=== PATIENT | female | born 1960 | race Caucasian/White ===

== ENCOUNTER 2020-03-10 00:58 | Emergency (ER) | payer MEDICARE ==
[~2020-03-10 00:58] MED LIST: ANASTROZOLE1 MG PO; BACLOFEN 10MG T10 MG PO; BACTRIM DS TAB1 EACH PO; BREO ELLIPTA 11 EACH INH; BUMEX1 MG PO; BUSPAR5 MG PO; CLARITIN10 MG PO; COMBIVENT RESPIM4 GM INH; COREG 6.25MG6.25 MG PO; CRESTOR20 MG PO; DUONEB 2.5-0.5M1 AMP INH; FUROSEMIDE 40MG40 MG PO; HYDRALAZINE HCL25 MG PO; ISOSORBIDE MONO30 MG PO; LASIX20 MG PO; LEVAQUIN250 MG PO; LIPITOR20 MG PO; MYCOPHENOLATE500 MG PO; NASONEX NAS120 PUFFS; NORCO 7.5-3251 EACH PO; PREDNISONE 20MG20 MG PO; PRILOSEC20 MG PO; PRINIVIL10 MG PO; PROZAC20 MG PO; SINGULAIR10 MG PO; TOPROL XL 25MG25 MG PO; TUMERIC PO; VITAMIN B-121000 MC1 IM; VOLTAREN **OUT75 MG PO; XANAX0.5 M1 PO; ZAROXOLYN2.5 MG PO; ZYRTEC-D TABLE1 EACH PO
[2020-03-10 01:54] LABS: BASOPHIL 0.1 % (0-2); EOSINOPHIL 0.7 % (0-5); HCT 30.7 % (37.0-47.0); HGB 10.1 g/dl (12.5-16.0); LYMPHOCYTE 6.7 % (15-48); MCH 30.6 pg (25.0-31.0); MCHC 32.9 g/dL (32.0-36.0); MONOCYTE 3.7 % (0-12); MPV 12.2 fL (6.0-9.5); NEUTROPHIL 87.8 % (41-80); NRBC 0; PLT 193 K/uL (150-400); RDW 16.7 % (11.5-14.0); WBC 20.6 K/uL (4.0-10.5)
[2020-03-10 02:30] LABS: LACTIC ACID 0.6 mmol/L (0.4-1.9); PRO-BNP > 35000 pg/mL (<125)
[2020-03-10 04:40] LABS: ALBUMIN 1.4 g/dL (3.4-5.0); ALKALINE PHOSHATASE 235 U/L (46-116); ALT 15 U/L (14-59); AMYLASE 17 U/L (25-115); AST 12 U/L (15-37); BILIRUBIN - TOTAL 0.4 mg/dL (0.2-1.0); CHLORIDE 92 mmol/L (98-107); CO2 (BICARBONATE) 22 mmol/L (21-32); CREATININE 9.29 mg/dL (0.51-0.95); GLOBULIN (CALCULATION) 4.8 g/dL; GLUCOSE 90 mg/dL (74-106); LDH 182 U/L (81-234); POTASSIUM 3.6 mmol/L (3.5-5.1); TOTAL PROTEIN 6.2 g/dL (6.4-8.2)
[2020-03-10 04:41] LABS: BUN 82 mg/dL (7-18); C-REACTIVE PROTEIN > 18.00 mg/dL (<=0.90)
== END 2020-03-10 16:22 | disposition other institution (70) ==
LOC: FER 00:58
PROVIDERS: Emergency Medicine Emergency Medical Services
DX: A41.9 Sepsis, unspecified organism (principal); R23.0 Cyanosis; R60.0 Localized edema; J90 Pleural effusion, not elsewhere classified; R00.0 Tachycardia, unspecified; M79.605 Pain in left leg; M79.604 Pain in right leg; N18.6 End stage renal disease; I50.9 Heart failure, unspecified; Z99.2 Dependence on renal dialysis; Z87.01 Personal history of pneumonia (recurrent); Z85.118 Personal history of other malignant neoplasm of bronchus and lung; Z85.3 Personal history of malignant neoplasm of breast; Z20.822 Contact with and (suspected) exposure to COVID-19
CPT/HCPCS: 36415; 71045; 75635; 80053; 82150; 82728; 83605; 83615; 83880; 84145; 84484; 85025; 85379; 86140; 87040; 93005; 93970; J1170; J1644; J2405; J2543; J3370; J7050; Q9967; U0002

== ENCOUNTER 2020-11-05 18:45 | Emergency (ER) | payer MEDICARE ==
[2020-11-05 20:29] LABS: BASOPHIL 0.3 % (0-2); EOSINOPHIL 1.3 % (0-5); HCT 38.2 % (37.0-47.0); HGB 11.8 g/dl (12.5-16.0); LYMPHOCYTE 17.2 % (15-48); MCH 28.2 pg (25.0-31.0); MCHC 30.9 g/dL (32.0-36.0); MCV 91.2 fL (78.0-100.0); MONOCYTE 8.4 % (0-12); MPV 11.6 fL (6.0-9.5); NEUTROPHIL 72.3 % (41-80); NRBC 0; PLT 150 K/uL (150-400); RBC 4.19 M/uL (4.20-5.40); RDW 18.3 % (11.5-14.0); WBC 9.4 K/uL (4.0-10.5)
[2020-11-05 20:49] LABS: BILIRUBIN - TOTAL 0.5 mg/dL (0.2-1.0); BUN/CREAT RATIO (CALC) 7.5 RATIO; CREATININE 4.56 mg/dL (0.51-0.95); GLOBULIN (CALCULATION) 3.8 g/dL; MAGNESIUM 2.2 mg/dL (1.8-2.4); PHOSPHORUS 5.1 mg/dL (2.6-4.7); POTASSIUM 3.7 mmol/L (3.5-5.1); TOTAL PROTEIN 6.8 g/dL (6.4-8.2)
[2020-11-05] MEDS ORDERED: LEVAQUIN500 MG PO (23:27)
== END 2020-11-06 00:15 | disposition home or self-care (01) ==
LOC: FER 18:45
PROVIDERS: Emergency Medicine
DX: J18.9 Pneumonia, unspecified organism (principal); N18.6 End stage renal disease
CPT/HCPCS: 36415; 71250; 80053; 83735; 84100; 84145; 84484; 85025; 93005; J1956

== ENCOUNTER 2020-11-16 11:07 | Inpatient (IN) | payer MEDICARE ==
[~2020-11-16] VITALS: Ht 172.7 cm; Wt 100.0 kg
[~2020-11-16 11:07] MED LIST changes: +LEVAQUIN500 MG PO
[2020-11-16 12:39] LABS: BASOPHIL 0.4 % (0-2); EOSINOPHIL 0.1 % (0-5); HCT 40.7 % (37.0-47.0); HGB 12.5 g/dl (12.5-16.0); LYMPHOCYTE 13.8 % (15-48); MCH 28.2 pg (25.0-31.0); MCHC 30.7 g/dL (32.0-36.0); MCV 91.7 fL (78.0-100.0); MPV 12.7 fL (6.0-9.5); NEUTROPHIL 74.1 % (41-80); NRBC 0.3; PLT 185 K/uL (150-400); RBC 4.44 M/uL (4.20-5.40); RDW 18.8 % (11.5-14.0); WBC 16.8 K/uL (4.0-10.5)
[2020-11-16 12:51] LABS: ALBUMIN 3.2 g/dL (3.4-5.0); BILIRUBIN - TOTAL 1.2 mg/dL (0.2-1.0); CREATININE 6.48 mg/dL (0.51-0.95); GLOBULIN (CALCULATION) 3.8 g/dL
[2020-11-16 13:05] LABS: POTASSIUM 6.6 mmol/L (3.5-5.1)
[2020-11-16 13:06] LABS: LACTIC ACID 6.5 mmol/L (0.4-1.9)
[2020-11-16 13:34] LABS: BILIRUBIN NEGATIVE (NEGATIVE); BLOOD 3+ Ery/uL (NEGATIVE); CLARITY CLEAR (CLEAR); COLOR YELLOW (YELLOW); GLUCOSE (U) NORMAL (NORMAL); LEUKOCYTES NEGATIVE Leu/uL (NEGATIVE); NITRITE NEGATIVE (NEGATIVE); PROTEIN 2+ mg/dL (NEGATIVE); UROBILINOGEN 0.2 mg/dL (0.2-1.0); pH 5.5 (5.0-9.0)
[2020-11-16 13:40] LABS: ECSTASY (MDMA) NEGATIVE (NEGATIVE); MARIJUANA (THC) NEGATIVE (NEGATIVE); METHADONE NEGATIVE (NEGATIVE); OPIATES POSITIVE (NEGATIVE)
[2020-11-16 13:41] LABS: AMPHETAMINES NEGATIVE (NEGATIVE); BARBITURATES NEGATIVE (NEGATIVE); OXYCODONE NEGATIVE (NEGATIVE)
[2020-11-16 13:45] LABS: URINARY RBC 20-50
[2020-11-16] MEDS ORDERED: ANASTROZOLE1 MG PO (23:31)
[2020-11-16] MEDS ORDERED: XANAX0.5 MG PO (23:32)
[2020-11-16] MEDS ORDERED: ONDANSETRON ODT8 MG PO (23:34)
[2020-11-16] MEDS ORDERED: ZYPREXA 5MG TABL5 MG PO (23:35)
[2020-11-16] MEDS ORDERED: METOPROLOL SUCC25 MG PO (23:37)
[2020-11-16] MEDS ORDERED: ELIQUIS2.5 MG PO (23:37)
[2020-11-16] MEDS ORDERED: CARAFATE1 GM PO (23:38)
[2020-11-16] MEDS ORDERED: MIDODRINE HCL2.5 MG PO (23:39)
[2020-11-17 05:49] LABS: BASOPHIL 0.5 % (0-2); EOSINOPHIL 0.1 % (0-5); HCT 35.9 % (37.0-47.0); HGB 11.6 g/dl (12.5-16.0); LYMPHOCYTE 12.3 % (15-48); MCH 28.6 pg (25.0-31.0); MCHC 32.3 g/dL (32.0-36.0); MCV 88.4 fL (78.0-100.0); MONOCYTE 9.7 % (0-12); MPV 12.1 fL (6.0-9.5); NEUTROPHIL 76.5 % (41-80); NRBC 0.4; PLT 145 K/uL (150-400); RBC 4.06 M/uL (4.20-5.40); RDW 18.3 % (11.5-14.0); WBC 10.6 K/uL (4.0-10.5)
--- NOTE | 2020-11-17 06:17 | NUR ---
0515 PATIENT WAS FOUND TO HAVE PULLED OUT PORT. KATHIE FERREIRA NOTIFIED. NEW PORT ACCESS WAS INTIATED AND RESTRAINTS WERE PLACED BACK ON THE PATIENTS UPPER EXTREMITIES. ACCU CHECK WAS DONE AT THIS TIME AND THE RESULTS WERE 60 APPLE JUICE GIVEN PO. RECHECK WAS 60 AND APPLE SAUCE WAS GIVEN PO AT 0600
[2020-11-17 06:20] LABS: ALBUMIN 2.9 g/dL (3.4-5.0); BILIRUBIN - TOTAL 1.3 mg/dL (0.2-1.0); C-REACTIVE PROTEIN 11.2 mg/dL (<=0.90); CREATININE 3.84 mg/dL (0.51-0.95); GLOBULIN (CALCULATION) 3.1 g/dL; MAGNESIUM 2.1 mg/dL (1.8-2.4); PHOSPHORUS 5.2 mg/dL (2.6-4.7)
[2020-11-17 06:29] LABS: POTASSIUM 4.7 mmol/L (3.5-5.1)
--- NOTE | 2020-11-17 07:23 | NUR ---
ACCU CEHCK AFTER D50 WAS 134
[2020-11-18 04:29] LABS: BASOPHIL 0.3 % (0-2); EOSINOPHIL 0.8 % (0-5); HCT 34.6 % (37.0-47.0); HGB 11.1 g/dl (12.5-16.0); LYMPHOCYTE 13.3 % (15-48); MCH 28.5 pg (25.0-31.0); MCHC 32.1 g/dL (32.0-36.0); MCV 88.7 fL (78.0-100.0); MONOCYTE 6.9 % (0-12); NEUTROPHIL 78.1 % (41-80); NRBC 0.2; PLT 127 K/uL (150-400); RDW 18.6 % (11.5-14.0); WBC 10.7 K/uL (4.0-10.5)
[2020-11-18 04:47] LABS: ALBUMIN 2.7 g/dL (3.4-5.0); BILIRUBIN - TOTAL 0.9 mg/dL (0.2-1.0); BUN/CREAT RATIO (CALC) 9.8 RATIO; C-REACTIVE PROTEIN 7.7 mg/dL (<=0.90); CREATININE 4.98 mg/dL (0.51-0.95); GLOBULIN (CALCULATION) 3.5 g/dL; POTASSIUM 3.9 mmol/L (3.5-5.1); TOTAL PROTEIN 6.2 g/dL (6.4-8.2)
--- NOTE | 2020-11-18 05:31 | NUR ---
PATIENT CALLED OUT REPORTING PAIN AROUND 0100 AND ASKED FOR HER PAIN MEDICATION. PER HER MAR I TOOK THE PATIENT 650 MG OF TYLENOL. WHEN I GAVE THE PATIENT HER PAIN MEDICATION SHE ASKED ME WHAT IT WAS AND I TOLD HER. PER MY RESPONSE SHE TOLD ME THAT SHE NEEDED SOMETHING STRONGER. I EXPLAINED TO THE PATIENT THAT DUE TO HER HAVING BEEN ADMITTED WITH AMS AND HER RENAL FUNCTION THAT I WAS UNABLE TO GIVE HER ANY MEDICATION THAT COULD EFFECT HER MENTAL STATUS AND NEGATIVELY IMPACT HER RENAL FUNCTION. I DISCUSSED THIS WITH KARLO ELLER APRN WHO AGREED. THE PATIENT CALLED OUT YELLING FIVE TIMES WITHIN THE HOUR OF ME GIVING HER THE TYLENOL REPORTING THAT SHE NEEDED HER PAIN MEDS. I TRIED TO EXPLAIN TO THE PATIENT THAT IT TAKES MEDICATIONS TAKEN PO AROUND AN HOUR TO BE ABSORBED BY THE BODY AND TO START TO HELP AND TO TRY AND GIVE THE MEDICATION TIME TO WORK. THE PATIENT SEEMED TO CALM DOWN SOME BUT THEN AROUND 0400 I HEARD THE PATIENT ON THE PHONE YELLING AT HER HERBERT TO BRING HER HER XANAX AND PAIN MEDICATION BECAUSE SHE WAS IN PAIN. I THEN SPOKE WITH HER OVER THE PHONE AND EXPLAINED TO HIM THE REASONS I DID NOT FEEL COMFORTABLE GIVING HER THESE MEDICATIONS DUE TO HER AMS THAT HAD JUST RESOLVED AT 0000 WITH HER BEING ABLE TO CORRECTLY ANSWER ALL OF MY ORIENTATION QUESTIONS. HER THEN TOLD ME THAT SHE WASN'T EVEN IN THE HOSPITAL FOR ANYTHING TO DO WITH HER MENTAL STATUS AND THAT SHE WAS HERE FOR SOMETHING TO DO WITH HER LUNGS. I THEN SPOKE WITH KARLO ELLER APRN AGAIN AND DUE TO THE PATIENTS RENAL FUNCTION ALREADY BEING SO BAD AND HER SUPPOSED TO BE HAVING DIALYSIS TODAY HE ORDEERED 30 MG TORDOL AND 25MG OF ATARAX TO HELP CALM HER. THE PATIENT WAS GIVEN THESE MEDICATIONS AT 0515 AND REPORTED THAT THEY DID HELP HER PAIN. I WILL CONTINUE TO MONITOR FOR CHANGES AT THIS TIME.
[2020-11-18] MEDS ORDERED: AZITHROMYCIN250 MG PO (08:50)
== END 2020-11-18 10:21 | disposition home or self-care (01) | DRG 871 ==
LOC: FER 11:07 → FTCU 20:36
PROVIDERS: Family Medicine; Nurse Practitioner; Nurse Practitioner Family; ADMIT Internal Medicine
PROC: 5A1D70Z Performance of Urinary Filtration, Intermittent, Less than 6 Hours Per Day (ICD-10-PCS; principal; 2020-11-16)
DX: A41.9 Sepsis, unspecified organism (principal); J18.9 Pneumonia, unspecified organism; J96.01 Acute respiratory failure with hypoxia; N18.6 End stage renal disease; G93.41 Metabolic encephalopathy; I12.0 Hypertensive chronic kidney disease with stage 5 chronic kidney disease or end stage renal disease; I42.8 Other cardiomyopathies; R65.20 Severe sepsis without septic shock; Z20.822 Contact with and (suspected) exposure to COVID-19; I48.91 Unspecified atrial fibrillation; E87.70 Fluid overload, unspecified; E66.9 Obesity, unspecified; E83.52 Hypercalcemia; E16.2 Hypoglycemia, unspecified; J44.9 Chronic obstructive pulmonary disease, unspecified; K44.9 Diaphragmatic hernia without obstruction or gangrene; K21.9 Gastro-esophageal reflux disease without esophagitis; I73.9 Peripheral vascular disease, unspecified; Z78.1 Physical restraint status; Z90.2 Acquired absence of lung [part of]; Z90.11 Acquired absence of right breast and nipple; Z85.3 Personal history of malignant neoplasm of breast; Z85.118 Personal history of other malignant neoplasm of bronchus and lung; Z99.2 Dependence on renal dialysis; Z90.49 Acquired absence of other specified parts of digestive tract; Z90.710 Acquired absence of both cervix and uterus; Z98.890 Other specified postprocedural states; Z89.431 Acquired absence of right foot
CPT/HCPCS: 36415; 70450; 71045; 71250; 80053; 80305; 81001; 82962; 83605; 83615; 83735; 83880; 84100; 84145; 85025; 86140; 87040; 87088; 94640; 94664; C9113; G0257; J0610; J1642; J1885; J2060; J2543; J3370; J7030; J7050; U0002

== ENCOUNTER 2020-11-30 16:33 | Emergency (ER) | payer MEDICARE ==
[~2020-11-30 16:33] MED LIST changes: +AZITHROMYCIN250 MG PO; +CARAFATE1 GM PO; +ELIQUIS2.5 MG PO; +METOPROLOL SUCC25 MG PO; +MIDODRINE HCL2.5 MG PO; +ONDANSETRON ODT8 MG PO; +XANAX0.5 MG PO; +ZYPREXA 5MG TABL5 MG PO
[2020-11-30 17:55] LABS: BASOPHIL 0.2 % (0-2); EOSINOPHIL 0.2 % (0-5); HCT 40.1 % (37.0-47.0); HGB 12.4 g/dl (12.5-16.0); LYMPHOCYTE 15.2 % (15-48); MCH 28.3 pg (25.0-31.0); MCHC 30.9 g/dL (32.0-36.0); MCV 91.6 fL (78.0-100.0); MONOCYTE 8.9 % (0-12); MPV 12.7 fL (6.0-9.5); NEUTROPHIL 74.9 % (41-80); NRBC 0.2; PLT 179 K/uL (150-400); RBC 4.38 M/uL (4.20-5.40); RDW 18.3 % (11.5-14.0); WBC 12.5 K/uL (4.0-10.5)
[2020-11-30 18:00] LABS: INR 1.44 (0.9-1.2); PROTHROMBIN TIME 16.8 SECONDS (11.8-13.4)
[2020-11-30 18:12] LABS: ALBUMIN 3.5 g/dL (3.4-5.0); BILIRUBIN - TOTAL 1.2 mg/dL (0.2-1.0); BUN/CREAT RATIO (CALC) 9.3 RATIO; CREATININE 7.06 mg/dL (0.51-0.95); GLOBULIN (CALCULATION) 3.4 g/dL; POTASSIUM 6.4 mmol/L (3.5-5.1); TOTAL PROTEIN 6.9 g/dL (6.4-8.2)
[2020-11-30 23:47] LABS: BILIRUBIN NEGATIVE (NEGATIVE); BLOOD 3+ Ery/uL (NEGATIVE); CLARITY CLEAR (CLEAR); COLOR YELLOW (YELLOW); GLUCOSE (U) NORMAL (NORMAL); LEUKOCYTES NEGATIVE Leu/uL (NEGATIVE); NITRITE NEGATIVE (NEGATIVE); PROTEIN 2+ mg/dL (NEGATIVE)
[2020-11-30 23:50] LABS: BARBITURATES NEGATIVE (NEGATIVE); ECSTASY (MDMA) NEGATIVE (NEGATIVE); MARIJUANA (THC) NEGATIVE (NEGATIVE); METHADONE NEGATIVE (NEGATIVE); OPIATES POSITIVE (NEGATIVE)
[2020-11-30 23:51] LABS: AMPHETAMINES NEGATIVE (NEGATIVE); OXYCODONE NEGATIVE (NEGATIVE)
[2020-11-30 23:54] LABS: URINARY RBC TNTC
[2020-11-30 23:55] LABS: AMORPHOUS URATES CRYSTALS TRACE; BACTERIA TRACE
[2020-11-30 23:56] LABS: TRANSITIONAL EPITHELIAL CELLS RARE
[2020-12-01 06:57] LABS: CREATININE 7.29 mg/dL (0.51-0.95); POTASSIUM 5.9 mmol/L (3.5-5.1)
[2020-12-01 07:37] LABS: LACTIC ACID 2.6 mmol/L (0.4-1.9)
== END 2020-12-01 13:07 | disposition other institution (70) ==
LOC: FER 16:33
PROVIDERS: Emergency Medicine; Emergency Medicine Emergency Medical Services
DX: J18.9 Pneumonia, unspecified organism (principal); E87.5 Hyperkalemia; R94.5 Abnormal results of liver function studies; R41.82 Altered mental status, unspecified; Z20.822 Contact with and (suspected) exposure to COVID-19; N18.6 End stage renal disease; Z99.2 Dependence on renal dialysis; I50.9 Heart failure, unspecified; Z90.2 Acquired absence of lung [part of]; Z85.118 Personal history of other malignant neoplasm of bronchus and lung; Z79.01 Long term (current) use of anticoagulants; Z79.899 Other long term (current) drug therapy
CPT/HCPCS: 36415; 36600; 71045; 71250; 80048; 80053; 80305; 81001; 82140; 82803; 83605; 83880; 84132; 85025; 85610; 85730; 87040; 87088; 93005; 94640; 94664; 94762; J2310; J2543; J3370; J7040; J7050; U0002

== ENCOUNTER 2020-12-10 21:36 | Emergency (ER) | payer MEDICARE ==
[2020-12-11 00:19] LABS: BASOPHIL 0.2 % (0-2); EOSINOPHIL 1.3 % (0-5); HCT 41.4 % (37.0-47.0); HGB 12.6 g/dl (12.5-16.0); LYMPHOCYTE 12.1 % (15-48); MCH 28.8 pg (25.0-31.0); MCHC 30.4 g/dL (32.0-36.0); MCV 94.5 fL (78.0-100.0); MONOCYTE 7.8 % (0-12); NEUTROPHIL 78.2 % (41-80); NRBC 0; PLT 156 K/uL (150-400); RBC 4.38 M/uL (4.20-5.40); WBC 11.2 K/uL (4.0-10.5)
[2020-12-11 00:31] LABS: ALBUMIN 3.2 g/dL (3.4-5.0); BILIRUBIN - TOTAL 0.7 mg/dL (0.2-1.0); BUN/CREAT RATIO (CALC) 7.1 RATIO; CREATININE 4.91 mg/dL (0.51-0.95); GLOBULIN (CALCULATION) 4.2 g/dL; POTASSIUM 3.9 mmol/L (3.5-5.1); TOTAL PROTEIN 7.4 g/dL (6.4-8.2)
[2020-12-11 00:33] LABS: LACTIC ACID 1.6 mmol/L (0.4-1.9)
[2020-12-11 00:38] LABS: PRO-BNP > 35000 pg/mL (<125)
== END 2020-12-11 05:51 | disposition home or self-care (01) ==
LOC: FER 21:36
PROVIDERS: Emergency Medicine Emergency Medical Services
DX: E87.70 Fluid overload, unspecified (principal); N18.6 End stage renal disease; Z99.2 Dependence on renal dialysis; Z90.710 Acquired absence of both cervix and uterus
CPT/HCPCS: 36415; 36600; 71045; 80053; 82140; 82150; 82803; 83605; 83880; 84145; 84484; 85025; 87040; 93005